=== PATIENT | female | born 1955 | race Caucasian/White ===

== ENCOUNTER 2017-01-31 14:00 | Day surgery (SDC) | payer OTHER ==
[~2017-01-31] VITALS: Ht 147.3 cm; Wt 34.0 kg
[~2017-01-31 14:00] MED LIST: ALBU8.5H2 IH; ASPI-973 PO; ATOR20TA PO; CALC-714 PO; DIL4T PO; ESTR0.3T2 PO; ESTR0.5T4 PO; HUM100IN3 SUBQ; INSU100I13 SUBQ; LIPA1CAP PO; Lactated Ringer's 1,000 ML IV ONE; MEDICAL MARIJUANA; MULT-36 PO; NORT10SO PO; OMEP20TA24 PO; ONDA8TAB7 PO; OXYC5CAP4 PO; PANCRELIPASE PO; PARO20TA5 PO; PARO40TA47 PO; POTA-62 PO; PROM25TA14 PO; SYMINH IH; SYMINH INHALATION; TRAZ-115 PO
[2017-01-31] MEDS ORDERED: EPHEDrine/NS 5 mg/mL 5 mL Syringe ONE (14:01)
[2017-01-31] MEDS ORDERED: Propofol 10,000 mCg/mL 20 mL Inj ONE (14:01)
[2017-01-31 15:07] VITALS: BP 107/70; PULSE 104; RESP 16; O2SAT 100
[2017-01-31] MEDS ORDERED: NORT10CA PO (15:14)
[2017-01-31] MEDS ORDERED: MAGN250T29 PO (15:15)
[2017-01-31] MEDS ORDERED: Lactated Ringer's 1,000 ML IV SCH (15:48)
[2017-01-31] MEDS ORDERED: Ondansetron 2 mg/mL 2 mL Inj IVPUSH PRN (15:50)
[2017-01-31] MEDS ORDERED: MetoCLOpramide 5 mg/mL 2 mL Inj IVPUSH PRN (15:50)
[2017-01-31 16:20] VITALS: BP 64/44; PULSE 103; RESP 16; O2SAT 99
[2017-01-31 16:28] VITALS: BP 86/40; PULSE 96; RESP 16; O2SAT 100
[2017-01-31 16:30] VITALS: BP 97/55; PULSE 92; RESP 20; O2SAT 99
[2017-01-31 16:40] VITALS: BP 97/55; PULSE 90; RESP 16; O2SAT 96
[2017-01-31 16:50] VITALS: BP 99/55; PULSE 93; RESP 16; O2SAT 97
--- NOTE | 2017-01-31 17:22 | PCM.HPANE ---
Patient Data Surgeon Admitting Provider: Attending Provider:Pian Rutherford MD Primary Care Physician:Salinas Renteria MD Other Provider:Tabatha Camachoingham Anesthesia Reason for Visit Colonic Thickening Ht/WT & BMI Body Mass Index Allergies Coded Allergies: Cephalosporins (Verified Allergy, Severe, ANAPHYLAXIS, 01/30/17) carboplatin (Verified Allergy, Severe, UNKNOWN, 02/03/15) lorazepam (Verified Allergy, Severe, 02/03/15) PATIENT NOT TO RECEIVE ANYTHING IN THIS FAMILY OF DRUGS. erythromycin base (Verified Adverse Reaction, Severe, NAUSEA/VOMITING, ) Past Anesthesia History Anesthesia History: Denies:: Abnormal Airway, Anesthesia Reactions, Difficult Intubation, Fam Anesthesia Reaction, Fam Malignant Hypertherm, Malignant Hyperthermia Diabetes History Hx Diabetes?: Yes (IDDM) Type of Diabetes: Type II Glycemic Control: Insulin Dependent MRSA MRSA: No Medications Reported Medications Magnesium Oxide (Magnesium)250 Mg Nitchd040 Mg PO DAILY 01/31/17 Nortriptyline 10 Mg Mapipvc19 Mg PO BID 01/31/17 Budesonide/Formoterol 160-4.5 mcg Inh (Symbicort 160-4.5 mcg Inh)120 Puff Inhaler2 Puff INHALATION BID #1 INHALER Ref 0 01/30/17 Estrogens, Conjugated (Premarin)0.3 Mg Tablet0.3 Mg PO DAILY 30 Days Ref 0 01/30/17 Paroxetine (Paxil)40 Mg Dawqlq78 Mg PO HS Ref 0 01/30/17 Atorvastatin (Lipitor)20 Mg Bplhld95 Mg PO DAILY Ref 0 01/30/17 Estradiol (Estrace)0.5 Mg TabletUnknown Dose PO DAILY 30 Days Ref 0 01/30/17 Aspirin 81 Mg Bljnbz24 Mg PO DAILY Ref 0 01/30/17 Potassium Chloride ER 20 Meq Tablet.er20 Meq PO DAILY TAKE WITH FOOD 02/02/15 Ondansetron ODT (Zofran ODT)8 Mg Tab.rapdis8 Mg PO PRN PRN For Nausea/Vomiting 01/24/15 Insulin Glargine (Lantus U100 Solostar Insulin Pen)100 Unit/1 Ml Insuln.pen10 Unit SUBQ QPM-INSULIN #1 PENINJ Ref 0 01/24/15 Hum Insulin NPH/Reg Insulin Hm (HUMulin 70/30 U100 Insulin Kwikpen)100 Unit/1 Ml Insuln.pen SUBQ BID-INSULIN #1 PENINJ Ref 0 10/22/14 [Pancrelipase] No Conflict Check2 Tab PO QID 120,000 UNITS/24,000 UNITS/76,000 UNITS 05/05/14 Multivitamin (Daily Multiple Vitamin)1 Each Tablet1 Each PO DAILY 05/05/14 Calcium Carb/Magnesium Cmb #10 (Jesus-Mag Tablet Chewable)1 Each Tab.chew3 Each PO BID 05/05/14 Albuterol HFA (Proair HFA)8.5 Gm Hfa.aer.ad2 Puffs IH Q3-4H PRN For Shortness of Breath #1 INHALER 04/21/14 Trazodone 50 Mg Lipbcr002 Mg PO HS 30 Days Ref 0 04/21/14 Omeprazole Magnesium (Prilosec Otc)20 Mg Tablet.dr40 Mg PO DAILY #1 PKG Ref 0 04/21/14 [Medical Marijuana] No Conflict Check 02/24/14 Hydromorphone (Dilaudid)4 Mg Tablet4-8 Mg PO [id number] For Pain Ref 0 01/20/14 Discontinued Reported Medications Lipase/Protease/Amylase (Pancreaze Dr 2,600 Unit Cap)2.6 K-6.2K Capsule.drUnknown Dose PO 01/30/17 Nortriptyline 10 Mg/5 Ml Ohpgdxuu80 Mg PO 01/30/17 Promethazine 25 Mg Mllsqi07 Mg PO Q8 PRN For Nausea/Vomiting Ref 0 01/24/15 Budesonide/Formoterol 160-4.5 mcg Inh (Symbicort 160-4.5 mcg Inh)1 Puff Inha2 Puff IH BID Ref 0 08/02/14 Paroxetine 20 Mg Ktvccj06 Mg PO DAILY 30 Days Ref 0 04/21/14 oxyCODONE 5 Mg Capsule5 Mg PO QID PRN For Pain Ref 0 01/20/14 History History of ENT Problems?: No HEENT History: Positive for:: Sinus Problem Denies:: Abnormal Airway Cataracts Difficult Intubation Dysphagia Hearing Problem Denture Type: Full- Upper Full- Lower Teeth Condition: Missing Teeth Hx of Heart Problems?: No Cardiovascular History: Denies:: AICD Atrial Fibrillation Cardiac Surgery Chest Pain Congestive Heart Failure Edema Heart Murmur Hypertension Irregular Heartbeat Pacemaker Thrombophlebitis Valvular Heart Disease Hx of Respiratory Problem?: Yes Respiratory History: Positive for:: Asthma Dyspnea (FLORES) Denies:: COPD Chest Surgery Cough Emphysema Hemoptysis Oxygen Administration Pneumonia Pulmonary Embolism Tuberculosis Use of C-PAP Machine Use of Inhalers / NEBS Hx Neurologic Problems?: Yes Neurological History: Positive for:: Seizures (r/t low magnesium) Denies:: Alzheimer's Disease CVA Dementia Dizziness Headaches Multiple Sclerosis Parkinson's Disease Peripheral Neuropathy TIA Hx of GI Problems?: Yes Gastrointestinal History: Denies:: Cirrhosis Diverticulitis Gall Bladder Disease Gastroesphageal Reflux Gastrointestinal Bleeding Heartburn Hepatitis Hiatal Hernia Liver Disease Rectal Bleeding Hx of Problems?: Yes Genitourinary History: Positive for:: Kidney Stones Denies:: HX of Hemodialysis Urinary Tract Infection Female Hx: Denies:: Currently Endometriosis Pelvic Inflammatory Problems with Breasts? Skin History: Denies:: History Skin Disorders? Pressure Ulcers Hx Musculoskeletal Problems?: No Musculoskeletal History: Denies:: Back Injury Degenerative Joint Fibromyalgia Joint Replacement Musculoskeletal Trauma Myasthenia Gravis Osteoarthritis Rheumatoid Arthritis Systemic Lupus Hx of Psycho/Social Problems?: Yes Psycho Social History: Positive for:: Hx Depression Denies:: Anxiety Bipolar Disorder Suicide Attempt Hx Surgeries?: Yes (EXP LAP,ERCP W/ STENT,CYSTO/STENT,HERNIA RPR,HYST) Hx Any Other Health Problems?: Yes Other History: Positive for:: Cancer (rectal cancer/CERVICAL CA, Lung) Hospitalization (dehydration, pneumonia) Denies:: Endocrine Disease Thyroid Disease History Blood Transfusions: Positive for:: Blood Transfusions Denies:: Blood Transfuse Reaction Hx Diabetes: Yes (IDDM) Hx Alcohol Use: NoHx Substance Use: Yes (Medical marijuana) Smoking Status: Current Every Day Smoker Have You Smoked inLast 12 mo: Yes Stop/Bang Risk Assessment Category Category 1A: Patient has history of documented sleep apnea, and HAS NOT received any narcotic, sedative or anesthesia administration during this stay. Category 1B: Patient has history of documented sleep apnea, and HAS received any narcotic , sedative or anesthesia administration during this stay Category 2: Patient has SUSPECTED Obstructive Sleep Apnea, and HAS received any narcotic , sedative or anesthesia administration during this stay. Category 3: Patient has SUSPECTED Obstructive Sleep Apnea and HAS NOT received narcotic, sedative or anesthesia administration during this stay. Category 4: Outpatient in Procedural Areas with known sleep apnea or who screen positive for High Risk via the STOP/BANG questionnaire. Exam Exam General Appearance: Alert, Oriented X3, Cooperative, No Acute Distress HEENT/AIRWAY: MP 2, Neck Movement, Mouth Opening (3 FBMO) Lungs: Diminished Heart: Regular Rate/Rhythm Plan Impression Patient chart reviewed, patient interviewed and anesthestic plan with risks, benefits, and alternatives discussed, and informed consent obtained. NPO per Anesth. Guidelines: Yes ASA Physical Status: ASA3 Severe Disease (chronic pain) Anesthetic Plan: MAC Bene/Risks/Altern/Consents: Yes HP Complete Prior to Induction: Yes Pedro Leavitt MD January 31, 2017 07:23
--- NOTE | 2017-01-31 17:23 | PCM.ANEP1 ---
Post Anesthesia PACU Phase 1 Assessment Vital Signs Vital Signs Date Time Temp Pulse Resp B/P Pulse Ox O2 Delivery O2 Flow Rate FiO2 01/31/17 16:50 93 16 99/55 97 Room Air 01/31/17 16:40 90 16 97/55 96 Room Air 01/31/17 16:30 92 20 97/55 99 Room Air 01/31/17 16:28 96 16 86/40 100 Room Air 01/31/17 16:20 103 16 64/44 99 Room Air 01/31/17 15:07 104 16 107/70 100 Room Air Anesthetic Administered: MAC Level of Alertness: Awake, talking GOTTI's with Equal Strength: Yes Pain: No Nausea or Vomiting: No CV Function and Hydration: Yes Airway Device: none Oxygen Delivery: Room Air Lungs: Diminished Dermatome Level: Full Sensation PACU Phase 2 Assessment Complications: No Follow up Care: N/A Patient Instructions Provided: N/A Pedro Leavitt MD January 31, 2017 17:23
--- NOTE | 2017-02-01 11:44 | ENDO ---
[address] [address] ENDOSCOPY PROCEDURE PATIENT: ANTON JACOBO : 1955 MR#: [id number] ADMIT: 01/31/2017 JOB ID: [id number] DATE OF SERVICE: 01/31/2017 PROCEDURE PERFORMED: Colonoscopy. INDICATIONS: Colonic thickening seen on CT scan. ASA CLASSIFICATION, MALLAMPATI SCORE AND MEDICATIONS: The patient's ASA classification, Mallampati score and medications as per Dr. Pedro Leavitt's anesthesia report. INSTRUMENT USED: [id number]. PREPARATION QUALITY: Fair. PROCEDURE DETAILS: After informed consent was obtained, the patient was brought into the GI suite, where she was placed on oxygen via nasal cannula and monitored with continuous pulse oximeter, telemetry, and blood pressure monitoring. A time-out was performed. Then, she was placed in the left lateral decubitus position and medications were administered for sedation. Digital rectal exam was performed which was unremarkable. The colonoscope was then inserted into the rectum and advanced under direct visualization to the cecum, which was identified by the presence of the ileocecal valve and appendiceal orifice. Once the cecum was reached, the colonoscope was withdrawn back into the rectum, as the mucosa and lumen were examined. In the rectum, retroflexion was performed. Following retroflexion, remaining air in the rectum was suctioned, and procedure was completed. FINDINGS: 1. Normal colon mucosa from rectum to cecum appeared unremarkable. 2. In the rectum there were prominently enlarged rectal veins. 3. Retroflexion was not able to be performed in the rectum secondary to a narrow and short rectal vault. IMPRESSION: 1. Prominent rectal veins. 2. Otherwise, normal exam from rectum to cecum. RECOMMENDATIONS: Follow up in GI clinic as needed. COMPLICATIONS: None. ESTIMATED BLOOD LOSS: Zero.
== END 2017-01-31 23:59 | disposition home or self-care (01) ==
LOC: END 14:00
PROVIDERS: ATTEND Internal Medicine Gastroenterology
DX: R93.3 Abnormal findings on diagnostic imaging of other parts of digestive tract (principal); K63.9 Disease of intestine, unspecified; E11.9 Type 2 diabetes mellitus without complications; F17.210 Nicotine dependence, cigarettes, uncomplicated; Z85.118 Personal history of other malignant neoplasm of bronchus and lung; Z85.41 Personal history of malignant neoplasm of cervix uteri; Z90.710 Acquired absence of both cervix and uterus; Z85.048 Personal history of other malignant neoplasm of rectum, rectosigmoid junction, and anus; I87.8 Other specified disorders of veins; Z79.4 Long term (current) use of insulin; F12.90 Cannabis use, unspecified, uncomplicated
CPT/HCPCS: 45378; J7120

== ENCOUNTER 2017-02-20 15:09 | Emergency (ER) | payer OTHER ==
[~2017-02-20] VITALS: Ht 147.3 cm; Wt 34.1 kg
[~2017-02-20 15:09] MED LIST changes: -LIPA1CAP PO; -Lactated Ringer's 1,000 ML IV ONE; +MAGN250T29 PO; +NORT10CA PO; -NORT10SO PO; -OXYC5CAP4 PO; -PARO20TA5 PO; -PROM25TA14 PO; -SYMINH IH
[2017-02-20 15:13] VITALS: BP 125/80; PULSE 69; RESP 16; O2SAT 96
--- NOTE | 2017-02-20 15:21 | ED.REPORT ---
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 reports that the patient has been "gurgling" for the past few days. She is currentyl expressing concern because her symptoms have persisted. Patient denies any difficulty breathing, fevers or chills. She currently takes 1 baby aspirin per day and denies any other blood thinners. Patient has a CT scheduled for 02/25. Nursing Notes Stated Complaint: COUGHING UP BLOOD Chief Complaint: Respiratory Complaints Nursing Notes Reviewed: Yes Allergies: Coded Allergies: Cephalosporins (Verified Allergy, Severe, ANAPHYLAXIS, 02/20/17) carboplatin (Verified Allergy, Severe, UNKNOWN, 02/20/17) lorazepam (Verified Allergy, Severe, 02/20/17) PATIENT NOT TO RECEIVE ANYTHING IN THIS FAMILY OF DRUGS. erythromycin base (Verified Adverse Reaction, Severe, NAUSEA/VOMITING, 02/20) Scheduled ([Pancrelipase]) 2 TAB PO QID 120,000 UNITS/24,000 UNITS/76,000 UNITS Aspirin (Aspirin) 81 Mg Tablet 81 MG PO DAILY Atorvastatin (Lipitor) 20 Mg Tablet 20 MG PO DAILY Budesonide/Formoterol 160-4.5 mcg Inh (Symbicort 160-4.5 mcg Inh) 120 Puff Inhaler 2 PUFF INHALATION BID Calcium Carb/Magnesium Cmb #10 (Jesus-Mag Tablet Chewable) 1 Each Tab.chew 3 EACH PO BID Estradiol (Estrace) 0.5 Mg Tablet Unknown Dose PO DAILY Estrogens, Conjugated (Premarin) 0.3 Mg Tablet 0.3 MG PO DAILY Hum Insulin NPH/Reg Insulin Hm (HUMulin 70/30 U100 Insulin Kwikpen) 100 Unit/1 Ml Insuln.pen 0 SUBQ BID-INSULIN Hydromorphone (Dilaudid) 4 Mg Tablet 4-8 MG PO [id number] Insulin Glargine (Lantus U100 Solostar Insulin Pen) 100 Unit/1 Ml Insuln.pen 10 UNIT SUBQ QPM-INSULIN Magnesium Oxide (Magnesium) 250 Mg Tablet 250 MG PO DAILY Multivitamin (Daily Multiple Vitamin) 1 Each Tablet 1 EACH PO DAILY Nortriptyline (Nortriptyline) 10 Mg Capsule 10 MG PO BID Omeprazole Magnesium (Prilosec Otc) 20 Mg Tablet.dr 40 MG PO DAILY Paroxetine (Paxil) 40 Mg Tablet 40 MG PO HS Potassium Chloride ER (Potassium Chloride ER) 20 Meq Tablet.er 20 MEQ PO DAILY TAKE WITH FOOD Trazodone (Trazodone) 50 Mg Tablet 100 MG PO HS Scheduled PRN Albuterol HFA (Proair HFA) 8.5 Gm Hfa.aer.ad 2 PUFFS IH Q3-4H PRN PRN For Shortness of Breath Ondansetron ODT (Zofran ODT) 8 Mg Tab.rapdis 8 MG PO PRN PRN PRN For Nausea/ Vomiting Miscellaneous Medications ([Medical Marijuana]) General Time Seen by MD: 15:20 Chief Complaint Other (Hemoptysis) Hx Obtained From: Patient Arrived By: Walk-in Sudden in Onset?: No Onset Occurred: 3 days ago Symptom Duration: Since onset Location: : None Associated with: Reports: Hemoptysis Pertinent Negative: Pt denies other symptoms Recent Healthcare: No recent hospitalization, Recent doctor visit Past Medical History Past Medical History Notes: Oncologist: Dr. Kane Bunn MD PCP: Dr. Salinas Renteria MD Past Medical History 1. Poorly differentiated squamous cell carcinoma originally identified from right pelvic mass dated October 16, 2011 - no evidence of recurrence to date 2. Chronic recurrent pancreatitis from complicating calcifications within the pancreatic duct 3. Bile duct stent placement, managed by [facility]. 4. Cervical cancer diagnosed in 1983 5. History of clostridium difficile colitis 6. Chronic recurrent pancreatitis with exocrine and endocrine dysfunction 7. History of cholelithiasis status post bile duct stent 8. Probable COPD 9. Depression 10. History of tobacco abuse 11. Distant history cervical cancer 12. Postmenopausal syndrome on hormone replacement therapy Reports: Cancer, Diabetes mellitus Past Surgical History 1. 19 inch small-bowel resection for small bowel obstruction. 2. Lithotripsy for nephrolithiasis. 3. ERCP with biliary stenting for cholelithiasis. Smoking History Current Every Day Smoker Social History Alcohol Use: Denies alcohol use Drug Use: THC Other Social History: Good social support, Local resident Ambulatory Status Independent Review of Systems Constitutional: Denies: Chills, Fever Respiratory: Reports: Hemoptysis, Denies: Shortness of breath Cardiovascular: Denies: Chest pain Complete sys rev & neg: except as marked. Physical Exam Physical Exam Notes: Has tissue with a moderate amount of bright red blood. Not coughing in ED, not actively having hemoptysis. Initial Vital Signs Vital Signs (First) Date Time Temp Pulse Resp B/P Pulse Ox O2 Delivery O2 Flow Rate FiO2 02/20/17 15:13 37.2 69 16 125/80 96 Room Air Initial VS: Reviewed Head / Eyes: Atraumatic, Normocephalic, PERRL Extremities: Vascular intact, Neuro intact, No swelling, No tenderness Skin: Warm, Dry, No cyanosis Neurologic: Alert, Oriented, Nonfocal Psychiatric: Mood/affect normal, Behavior normal, Normal thought content General/Constitutional: Awake, Alert, No acute distress Neck: Atraumatic, Supple, Full range of motion Respiratory / Chest: Atraumatic, Breath sounds NL, Breath sounds = bilat, No respiratory distress Cardiovascular: Heart rate NL, Regular rhythm, Heart sounds NL, No gallop, No murmurs, No rubs Interpretation & Diagnostics Lab Results Interpretation Result Diagram: 02/20/17 1619 02/20/17 1619 Test 02/20/17 16:19 White Blood Count 9.3th/mm3 (3.8-10.1) Red Blood Count 4.14mil/mm3 (3.90-5.20) Hemoglobin 13.4g/dL (12.0-15.6) Hematocrit 40.7% (35.0-46.0) Mean Corpuscular Volume 98.3fL (81-100) Mean Corpuscular Hemoglobin 32.4pg (27.0-35.0) Mean Corpuscular Hemoglobin Concent 32.9% (32.0-37.0) Red Cell Distribution Width 13.2% (12.3-15.4) Platelet Count 222bil/L (150-400) Neutrophils (%) (Auto) 76.3% (40-74) Lymphocytes (%) (Auto) 14.0% (14-46) Monocytes (%) (Auto) 7.2% (4-12) Eosinophils (%) (Auto) 1.8% (0-5) Basophils (%) (Auto) 0.4% (0-3) Sodium Level 136mEq/L (134-144) Potassium Level 3.9mEq/L (3.5-5.2) Chloride Level 96mEq/L (97-108) Carbon Dioxide Level 27mmol/L (18-29) Blood Urea Nitrogen 11mg/dL (8-27) Creatinine 0.61mg/dL (0.57-1.00) Estimat Glomerular Filtration Rate 142mL/min (>59) Glucose Level 126mg/dL (60-99) Calcium Level 9.4mg/dL (8.5-10.1) Total Bilirubin 0.3mg/dL (0.0-1.2) Aspartate Amino Transf (AST/SGOT) 22U/L (0-50) Alanine Aminotransferase (ALT/SGPT) 16U/L (0-32) Alkaline Phosphatase 110U/L (25-165) Total Protein 7.0g/dL (6.4-8.4) Albumin 3.6g/dL (3.4-5.0) Hold Montoya Top Tube Received (Received) X-Ray Chest Interpretation Chest Xray Interpretation: IMPRESSION: 1. Left hilar consolidation and interstitial prominence likely represents the patient's known lung cancer. 2. No definite pneumonia is evident. Dictated by: Sony Jacobs M.D. on 02/20/2017 at 15:10 Interpretation / Wet Read by: Interpret - Radiologist CT Abd / Pelvis Interpretation IMPRESSION: 1. Consolidation involving the left lower lobe has increased in size compared to 09/14/2016. There is new hypoattenuation and heterogeneous enhancement centrally within the left lower lobe consolidation which is highly suspicious for recurrent/residual malignancy. 2. No lymphadenopathy based on size criteria. 3. 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 4. Biliary stents stable compared to prior examinations. No biliary dilatation identified suggest failure. Pneumobilia is unchanged. 5. Nonobstructing right renal stones. Dictated by: Jessie Alvarado MD, PhD on 02/20/2017 at 20:04 Study type: Abdominal CT IV contrast, Abdom CT oral contrast Interpretation / Wet Read by: Interpret - Radiologist Re-Eval/Medical Decision Med Decision/Clinical Course 61-year-old female with a previously known malignant lesion in her lung of unclear primary. Presents today with hemoptysis. Wheezing suggests a increase in tumor size, she is hemodynamically stable and not having active hemoptysis at present. We discussed admission for expedited pulmonary evaluation however patient prefers to go home and appears stable to do so. Dr. Bunn is advised of today's findings and will follow-up with the patient soon. Re-Evaluation/Progress #1: Time of Eval: 17:04 Re-Evaluation/Progress Note: She is informed if the plan to obtain a CT. Re-Evaluation/Progress #2: Time of Eval: 20:13 Re-Evaluation/Progress Note: Patient is rechecked and is resting comfortably. Re-Evaluation/Progress #3: Time of Eval: 21:06 Re-Evaluation/Progress Note: Pt is informed of her CT results and the recommendation to admit. Pt reports that she would like to be discharged. Consultation #1: Referral / Consult Name: Kane uBnn DO Call Returned at: 16:38 Staff [employer] Officer: Agrees with eval, Agrees with plan Note: Oncology - Would like CT Chest/Abd/Pelvis today Consultation #2: Referral / Consult Name: Kane Bunn DO Call Returned at: 22:03 Note: Oncology - Informed of the pt's CT results. Counseled Regarding: Diagnosis, Lab results, Need for follow-up, When/why to return to ED Discharge & Departure Impression: Primary Impression: Hemoptysis, unspecified Additional Impression: Metastatic squamous cell carcinoma involving lung with unknown primary site Laterality: left Qualified Code: C78.02 - Secondary malignant neoplasm of left lung Disposition: Home Discharge Condition All VS Reviewed: Yes Condition: Stable Patient Instructions: Hemoptysis (ED) Additional Instructions: Thank you for trusting us with your care this afternoon. Your emergency department evaluation today included interview, examination, lab work, chest X-ray and CT of the abdomen/chest/pelvis. Your CT revealed a mass in your lungs that has increased in size from your prior scan. We would like this to be evaluated further ZULEYMA. We have offered admission to hospital and this was declined. I recommend that you follow up with Dr. Bunn tomorrow. Please return to the emergency department for, worsening cough with blood, shortness of breath, chest pain, numbness/tingling, fever or chills. Referrals: Kane Bunn DO Scribe Attestation Portions of this note were transcribed by Jose G Christianson. I, Dr. Wallace personally performed the history, physical exam and medical decision-making; I reviewed and confirmed the accuracy of the information in the transcribed note. Signed by: Flory Sy, 02/20/17 [id number]. copies to: Salinas Renteria MD; Kane Bunn Donald L MD Feb 20, 2017 15:21 JOSE G CHRISTIANSON Feb 20, 2017 15:32
--- NOTE | 2017-02-20 16:13 | DRSVH ---
PROCEDURE: X-RAY CHEST, TWO VIEWS ([id number]) INDICATIONS: hemoptysis, history of lung Cancer TECHNIQUE: 2 views of the chest were acquired. COMPARISON: [facility], CT, CT CHEST WO CON, 09/14/2016, 13:10. [facility], CR, CHEST 2VW, 06/11/2014, 19:32. FINDINGS: Surgical changes and devices: A catheter/stent is seen within the upper midline abdomen, likely repre senting a biliary stent. Lungs and pleura: Interstitial prominence within the left perihilar region is present with associated airspace disease. Emphysematous changes of the lungs are noted. No large effusion or pneumothorax is appreciated. No new lung masses are evident. Mediastinum: Mediastinal contours are normal. Heart size is normal. There is aortic atherosclerosi s. Bones and chest wall: No suspicious bony abnormalities. Soft tissues appear unremarkable. IMPRESSION: 1. Left hilar consolidation and interstitial prominence likely represents the patient's known lung c ancer. 2. No definite pneumonia is evident. Dictated by: Sony Jacobs M.D. on 02/20/2017 at 15:10 Approved by: Sony Jacobs M.D. on 02/20/2017 at 15:12
[2017-02-20 16:34] LABS: BASOPHILS % (AUTO) 0.4 % (0-3); EOSINOPHILS % (AUTO) 1.8 % (0-5); MONOCYTES % (AUTO) 7.2 % (4-12); Mean Corpuscular Hemoglobin 32.4 pg (27.0-35.0); Mean Corpuscular Volume 98.3 fL (81-100); NEUTROPHILS % (AUTO) 76.3 % (40-74); Platelet Count 222 bil/L (150-400)
[2017-02-20] MEDS ORDERED: Iohexol 300 mg/mL 30 mL Inj PO ONE (17:50)
[2017-02-20 19:30] VITALS: BP 96/65; PULSE 91; RESP 20; O2SAT 95
--- NOTE | 2017-02-20 20:19 | DRSVH ---
PROCEDURE: CT CHEST, ABDOMEN AND PELVIS [facility] CONTRAST ([id number]) INDICATIONS: hemoptysis, history of lung tumor TECHNIQUE: After the administration of oral and intravenous contrast, 5 mm thick sections acquired from the lung apices to the symphysis. 5 mm coronal and sagittal reformats were performed, with additional 7 mm c oronal MIP reformats through the lungs. For radiation dose reduction, the following was used: autom ated exposure control, adjustment of mA and/or kV according to patient size. COMPARISON: [facility], CT, CT PELVIS W CON, 09/14/2016, 13:10. [facility], CT, CT CHEST WO CON, 09/14/2016, 13:10. [facility], CT, CT CHEST WO CON, 09/30/2015, 12: 58. [facility], CT, CT CHEST ABD PELVIS W CON, 05/19/2015, 12:32. [facility] , CT, CHEST/ABD/PELVIS W/CON (PNL), 01/21/2015, 13:08. [facility], CT, CHEST/ABD/PELVIS W /CON (PNL), 10/28/2014, 11:16. [facility], CT, ABD/PELVIS W/CON (PNL), 10/22/2014, 17:59. [facility], CT, CHEST/ABD/PELVIS W/CON (PNL), 07/26/2014, 10:39. [facility] , CT, CHEST ANGIO-PE, 04/21/2014, 19:27. [place], [place], PET/CT NECK TO MID THIGH, 014, 14:32. [facility], CT, CHEST/ABD/PELVIS W/CON (PNL), 10/20/2013, 10:25. [facility], CT, ABD/PELVIS W/CON (PNL), 09/06/2013, 11:57. [place], [place], PET/CT NECK TO MID THIGH, 07/10/2013, 14:57. [facility], CT, CHEST/ABD/PELVIS W/CON (PNL), 06/22/2013, 15:33. [facility], CT, CHEST ANGIO-PE, 05/29/2013, 16:40. [place], [place], PET/CT NE CK TO MID THIGH, 01/30/2013, 8:53. [facility], CT, CHEST/ABD/PELVIS W/CON (PNL), 3, 9:42. [facility], CT, CHEST/ABD/PELVIS W/CON (PNL), 08/20/2012, 14:38. [facility], CT, CHEST/ABD/PELVIS W/CON (PNL), 05/15/2012, 11:36. [facility], CT, ABD/PELVI S W/CON (PNL), 02/28/2012, 16:20. [facility], CT, CHEST/ABD/PELVIS W/CON (PNL), 12/12/2011 , 19:15. [facility], CT, CHEST W/O CONTRAST, 11/09/2011, 10:53. [place], [place], PET/CT NECK TO MID THIGH, 10/31/2011, 10:00. [facility], CT, ANG CHEST/ABD/PEL W/WO C ONTRAST (PNL), 10/16/2011, 0:34. FINDINGS: Image quality: Excellent. CHEST: Lungs and pleura: Focal consolidation in the mesial aspect of the left lower lobe has increased in s ize in interval since prior CT scan obtained 09/14/16. There is hypoattenuation and heterogeneous en hancement centrally within the area consolidation in the left lower lobe. Findings suspicious for re sidual/recurrent lung carcinoma. 3 mm nodule in the right upper lobe is decreased in size compared t o 05/19/2015. No pleural effusions or pneumothorax. Central and peripheral airways appear patent and normal in caliber. Mediastinum: Heart size is normal. Atherosclerotic calcifications noted in the aorta, great vessels and coronary vasculature. No pericardial effusion. No mediastinal or hilar adenopathy by size crite kianna. Thoracic aorta and central pulmonary arteries are normal in size. Esophagus is normal in calib er. No hiatal hernia. Chest wall: No axillary or supraclavicular adenopathy by size criteria. Thyroid gland is within nor mal limits. ABDOMEN: Solid organs: Liver and spleen are normal in size and enhancement. Gallbladder is surgically absent . Biliary system is non dilated. Evidence of intrahepatic and common bile duct biliary stents noted. Pneumobilia is noted. Pancreas enhances normally. No adrenal nodules. Kidneys demonstrate normal size and enhancement, without hydronephrosis. 1.0 cm and 0.7 cm nonobstructing right renal stones are noted. Peritoneum and bowel: Bowel loops demonstrate normal wall thickness and caliber. No free fluid or a ir. Nodes and vessels: No retroperitoneal or mesenteric adenopathy by size criteria. Aorta and inferior vena cava are normal in size. 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 Miscellaneous: No ventral hernias. PELVIS: Genitourinary: Bladder wall thickness is normal. Miscellaneous: No inguinal hernias or adenopathy. Bones: Sclerotic lesion in the head of the left humerus is stable compared to prior examinations. N o vertebral body compression fractures. IMPRESSION: 1. Consolidation involving the left lower lobe has increased in size compared to 09/14/2016. There i s new hypoattenuation and heterogeneous enhancement centrally within the left lower lobe consolidatio n which is highly suspicious for recurrent/residual malignancy. 2. No lymphadenopathy based on size criteria. 3. 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 4. Biliary stents stable compared to prior examinations. No biliary dilatation identified suggest f ailure. Pneumobilia is unchanged. 5. Nonobstructing right renal stones. Dictated by: Jessie Alvarado MD, PhD on 02/20/2017 at 20:04 Approved by: Jessie Alvarado MD, PhD on 02/20/2017 at 20:17
[2017-02-20 21:37] VITALS: BP 101/66; PULSE 88; RESP 20; O2SAT 97
== END 2017-02-20 21:38 | disposition home or self-care (01) ==
LOC: SED 15:09
DX: R04.2 Hemoptysis (principal); C78.02 Secondary malignant neoplasm of left lung; C80.1 Malignant (primary) neoplasm, unspecified; F32.9 Major depressive disorder, single episode, unspecified; E11.9 Type 2 diabetes mellitus without complications; F17.200 Nicotine dependence, unspecified, uncomplicated; K86.1 Other chronic pancreatitis; Z79.82 Long term (current) use of aspirin; Z79.4 Long term (current) use of insulin; Z92.21 Personal history of antineoplastic chemotherapy; Z92.3 Personal history of irradiation; Z85.828 Personal history of other malignant neoplasm of skin; Z79.890 Hormone replacement therapy; Z88.1 Allergy status to other antibiotic agents; Z88.8 Allergy status to other drugs, medicaments and biological substances
CPT/HCPCS: 36415; 71020; 71260; 74177; 80053; 85025; 99284; Q9967